=== PATIENT | male | born 1975 | race Caucasian/White ===

== ENCOUNTER 2022-01-12 08:28 | Day surgery (SDC) | payer BC ==
[2022-01-07 10:31] VITALS: BMI 33.0
[2022-01-12] MEDS ORDERED: Bupivacaine/Epinephrine 0.25% 30 ML VIAL ONE (09:12)
[2022-01-12] MEDS ORDERED: Bacitracin Zinc Ointment 30 gm TUBE ONE (09:12)
[2022-01-12] MEDS ORDERED: fentaNYL Citrate/PF 100 MCG/2 ML SYRINGE ONE (09:19)
[2022-01-12] MEDS ORDERED: Oxymetazoline HCl 0.05% (30 ML BOT) ONE (09:22)
[2022-01-12] MEDS ORDERED: PROPOFOL 200 MG/20 ML VIAL ONE (09:30)
[2022-01-12] MEDS ORDERED: NEOSTIGMINE 3 MG/3 ML SYR 3 MG/3 ML SYRINGE ONE (09:30)
[2022-01-12] MEDS ORDERED: Rocuronium Bromide 10 MG/ML (10ML VIAL) ONE (09:30)
[2022-01-12] MEDS ORDERED: Phenylephrine 10 MG/ML VIAL ONE (09:30)
[2022-01-12] MEDS ORDERED: Ondansetron PF 4 MG/2 ML Vial ONE (09:30)
[2022-01-12] MEDS ORDERED: Dexamethasone 20 MG/5 ML VIAL ONE (09:30)
[2022-01-12] MEDS ORDERED: ePHEDrine 50 MG/ML VIAL ONE (09:30)
[2022-01-12] MEDS ORDERED: Glycopyrrolate 0.2 MG/ML 5 ML SYRINGE ONE (09:30)
[2022-01-12] MEDS ORDERED: HYDROcodone/Acetaminophen 5/325 mg Tablet ONE (13:44)
== END 2022-01-12 13:59 | disposition home or self-care (01) ==
LOC: SDC 08:28
PROVIDERS: ATTEND Student in an Organized Health Care Education/Training Program
PROC: 09SM0ZZ Reposition Nasal Septum, Open Approach (ICD-10-PCS; principal; 2022-01-12)
PROC: 09QK0ZZ Repair Nasal Mucosa and Soft Tissue, Open Approach (ICD-10-PCS; principal; 2022-01-12)
PROC: 09TL0ZZ Resection of Nasal Turbinate, Open Approach (ICD-10-PCS; principal; 2022-01-12)
DX: J34.2 Deviated nasal septum (principal); J34.3 Hypertrophy of nasal turbinates; J34.89 Other specified disorders of nose and nasal sinuses; J31.0 Chronic rhinitis; R09.81 Nasal congestion; I48.91 Unspecified atrial fibrillation; I10 Essential (primary) hypertension; E78.5 Hyperlipidemia, unspecified; E66.9 Obesity, unspecified; Z68.33 Body mass index [BMI] 33.0-33.9, adult; Z86.16 Personal history of COVID-19; Z87.891 Personal history of nicotine dependence; Z79.899 Other long term (current) drug therapy
CPT/HCPCS: 93005; 93010; C1889; J1100; J2370; J2405; J2704; J3490